=== PATIENT | male | born 1960 | race Caucasian/White ===

== ENCOUNTER 2018-05-18 12:47 | Emergency (ER) | payer OTHER ==
[2018-05-18 12:51] VITALS: BP 139/84; PULSE 88; TEMP 98.5; BMI 23.6
[2018-05-18] MEDS ORDERED: IBUPROFEN 600 MG TABLET (FP) PO ONE ×2 (13:46→13:50)
[2018-05-18] MEDS ORDERED: SULFAMETHOXAZOLE/TRIMETHOPRIM 800MG/160MG D.S. TABLET PO ONE (13:46)
[2018-05-18] MEDS ORDERED: SULFAMETHOXAZOLE/TRIMETHOPRIM 800MG/160MG D.S. TABLET ONE (13:50)
--- NOTE | 2018-05-18 14:06 | PDOC ---
History of Present Illness - General Chief Complaint: Wound Stated Complaint: WOUND Time Seen by Provider: 05/18/18 13:11 History Source: Patient Exam Limitations: No Limitations - History of Present Illness Initial Comments: 05/18/18 14:00 58y/o M h/o heroine use (last about 1 week ago), ? borderline diabetes but poor medical f/u presents for evaluation of L foot wound for 2 weeks in setting of one month L foot pain. Pt had atraumatic L great toe pain about one month ago, diagnosed with gout in ED, then started on steroids about 2 weeks ago by podiatry. Pt's great toe pain/swelling resolved, as did the associated L foot swelling, but noted increased swelling over past week and now ulcer/wound near 5th digit. no f/c/redness/discharge, no numbness/weakness, no bleeding. Missed his f/u appt with podiatry, completed the steroid course yesterday, so he presents for evaluation. Past History - Past Medical History Allergies/Adverse Reactions: Allergies Allergy/AdvReac Type Severity Reaction Status Date / Time tetanus toxoid, adsorbed Allergy Intermediate Verified 05/18/18 12:48 Home Medications: Ambulatory Orders Sulfamethoxazole/Trimethoprim [Bactrim Ds -] 1 tab PO BID #20 tablet 05/18/18 Anemia: No Asthma: No Cancer: No Cardiac Disorders: No CVA: No COPD: No CHF: No Dementia: No Diabetes: No GI Disorders: No Disorders: No HTN: No Hypercholesterolemia: No Kidney Stones: No Liver Disease: No Seizures: No Thyroid Disease: No Other medical history: GOUT - Surgical History Abdominal Surgery: No Appendectomy: No Cardiac Surgery: No Cholecystectomy: No Lung Surgery: No Neurologic Surgery: No Orthopedic Surgery: No - Reproductive History Testicular Surgery: No - Suicide/Smoking/Psychosocial Hx Smoking History: Current every day smoker Have you smoked in the past 12 months: Yes Number of Cigarettes Smoked Daily: 20 Cigars Per Day: 0 Information on smoking cessation initiated: Yes 'Breaking Loose' booklet given: 05/18/18 Hx Alcohol Use: Yes Drug/Substance Use Hx: No Substance Use Type: Alcohol Hx Substance Use Treatment: Yes (08/27/14 to 08/29/14 [facility] completed) Review of Systems - Review of Systems Constitutional: No: Chills, Fever, Night Sweats HEENTM: No: Recent change in vision Respiratory: No: Shortness of Breath Cardiac (ROS): No: Chest Pain, Lightheadedness ABD/GI: No: Nausea, Vomiting : No: Frequency Musculoskeletal: Yes: See HPI Integumentary: Yes: See HPI Neurological: No: Headache, Paresthesia, Tingling, Weakness, Dizziness Endocrine: No: Symptoms Reported All Other Systems: Reviewed and Negative *Physical Exam - Vital Signs Last Vital Signs Temp Pulse Resp BP Pulse Ox 98.5 F 88 19 139/84 97 05/18/18 12:47 05/18/18 12:47 05/18/18 12:47 05/18/18 12:47 05/18/18 12:47 - Physical Exam Comments: 05/18/18 14:06 Afebrile. Vital signs normal. GENERAL: The patient is awake, alert, and fully oriented, in no acute distress. HEAD: Normal with no signs of trauma. EYES: PERRL, EOMI, sclera anicteric, conjunctiva clear with no pallor. ENT: oropharynx clear without exudates. Moist mucous membranes. NECK: Normal range of motion, supple without lymphadenopathy, JVD, or masses. LUNGS: Breath sounds equal, clear to auscultation bilaterally. No wheeze/ crackles. HEART: Regular rate and rhythm, normal S1 and S2 without murmur or rub. ABDOMEN: Soft/nontender/nondistended. BS wnl. No guarding or rebound. No palpable masses. No hepatosplenomegaly. EXTREMITIES: L foot: 2+ dorsal edema, no cellulitis. 2cm superficial wound to lateral/plantar aspect over distal 5th metatarsal, no deep tissue exposure, no bleeding/purulence, no gangrene. slight ttp, no fluctuance or crepitus. Normal range of motion, no leg edema. 2+ distal pulses. NEUROLOGICAL: Cranial nerves II through XII grossly intact. Normal speech, normal gait. PSYCH: Normal mood, normal affect. SKIN: As noted ED Treatment Course - LABORATORY CBC & Chemistry Diagram: 05/18/18 13:56 05/18/18 13:56 - RADIOLOGY Radiology Studies Ordered: Category Date Time Status FOOT-LEFT [RAD] Stat Radiology 05/18/18 13:35 Ordered - Medications Given in the ED: ED Medications Discontinued Medications Generic Name Dose Route Start Last Admin Trade Name Freq PRN Reason Stop Dose Admin Ibuprofen 600 mg 05/18/18 13:46 05/18/18 13:56 Motrin - PO 05/18/18 13:47 600 mg ONCE ONE Administration Trimethoprim/Sulfamethoxazole 1 each 05/18/18 13:46 05/18/18 13:56 Bactrim Ds - PO 05/18/18 13:47 1 each ONCE ONE Administration Medical Decision Making - Medical Decision Making 05/18/18 14:10 58y/o M borderline diabetic, heroine use p/w superficial L foot wound for 2 weeks in setting of recent gout flare and prednisone course. Possible skin breakdown from recent edema 2/2 gout flare, which itself has resolved. Now with superficial ulceration, nvi without evidence of deep tissue involvement. vitals stable without evidence of sepsis. check cbc and glucose L foot xray empiric abx if above wnl, d/c with abx and referral to podiatry/wound care 05/18/18 15:04 wbc 16, expected s/p prednisone course completed yesterday. chem wnl with slightly elevated glucose 133, no dka. on my prelim review of xray, no soft tissue free air or obvious bone breakdown. 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 understands return criteria. *DC/Admit/Observation/Transfer Diagnosis at time of Disposition: Foot ulcer, left Qualifiers: Non-pressure ulcer stage: limited to breakdown of skin Qualified Code(s): L97.521 - Non-pressure chronic ulcer of other part of left foot limited to breakdown of skin - Discharge Dispostion Disposition: HOME Condition at time of disposition: Stable - Prescriptions Prescriptions: Sulfamethoxazole/Trimethoprim [Bactrim Ds -] 1 tab PO BID #20 tablet - Referrals Referrals: Christos Bryant MD [Staff Physician] - [facility] [place] [facility] [place] [Provider Group] - Patient Instructions Printed Discharge Instructions: DI for Wound Infection Additional Instructions: Activity as tolerated. Stay hydrated. There is a superficial skin wound on the foot which may have an early infection. Take Bactrim as prescribed for antibiotic, but it will also need local care and debridement. This needs to be done with your head waiter/waitress banquet or in a wound clinic. Tylenol 1000 mg every 8 hours and/or ibuprofen 600 mg every 8 hours as needed for pain. Ice and elevate the affected areas for 20 minutes every 3-4 hours to reduce swelling, but avoid from soaking the wound. Continue your medications as previously prescribed by your physician. You should follow up with your head waiter/waitress banquet as soon as possible regarding today's emergency department visit. You can also establish primary care in our clinic, or visit Dr. Bryant in our wound clinic. Return to the emergency department for any new or concerning symptoms, particularly persistent or worsening swelling or pain, fever/chills, redness/pus /blood, numbness or weakness. - Post Discharge Activity
[2018-05-18 14:26] LABS: ANION GAP 6 MMOL/L (8-16); BLOOD UREA NITROGEN 17 mg/dl (7-18); CALCIUM 8.8 mg/dl (8.4-10.2); CHLORIDE 100 mmol/L (98-107); CO2 26 mmol/L (22-28); CREATININE 0.7 mg/dl (0.6-1.3); GLUCOSE,RANDOM 133 mg/dl (74-106); POTASSIUM 4.3 mmol/L (3.5-5.1); SODIUM 132 mmol/L (136-145)
[2018-05-18 14:32] LABS: HEMATOCRIT 44.1 % (35.4-49); HEMOGLOBIN 14.7 GM/dl (11.7-16.9); MCH 31.3 pg (25.7-33.7); MCHC 33.3 g/dl (32.0-35.9); MEAN CELL VOLUME 94.1 fl (80-96); MEAN PLT VOLUME 8.2 fl (7.5-11.1); PLATELET COUNT 402 K/MM3 (134-434); RBC 4.68 M/mm3 (4.00-5.60); RDW 13.8 % (11.9-15.9); WHITE BLOOD COUNT 16.3 K/mm3 (4.0-10.8)
[2018-05-18 15:26] LABS: PLATELET ESTIMATE ADEQUATE
== END 2018-05-18 15:26 | disposition home or self-care (01) ==
LOC: FER 12:47
DX: L97.521 Non-pressure chronic ulcer of other part of left foot limited to breakdown of skin (principal); R73.03 Prediabetes; F17.210 Nicotine dependence, cigarettes, uncomplicated
CPT/HCPCS: 36415; 73630-TC-LT; 80048; 85025; 99282-25

== ENCOUNTER 2018-10-21 21:05 | Inpatient (IN) | payer OTHER ==
--- NOTE | 2018-10-21 21:42 | HP ---
COWS - Scale Resting Pulse: 0= NE 80 or Below Sweatin= Chills/Flushing Restless Observation: 1= Difficult to Sit Still Pupil Size: 1= Pupils >than Normal Bone or Joint Aches: 1= Mild Discomfort Runny Nose/ Eye Tearin= None GI Upset > 30mins: 0= None Tremor Observation: 1= Tremor [place], Not Seen Yawning Observation: 2= >3x During Session Anxiety or Irritability: 2=Irritable/Anxious Goose Flesh Skin: 0=Smooth Skin COWS Score: 9 CIWA Score Nausea/Vomitin-No Nausea/No Vomiting Muscle Tremors: 2 Anxiety: 2 Agitation: 0-Normal Activity Paroxysmal Sweats: 2 Orientation: 2-Disoriented Date<2 days Tacttile Disturbances: 3-Moderate Itch/Numb/Burn (b/t feet) Auditory Disturbances: 0-None Visual Disturbances: 0-None Headache: 0-None Present CIWA-Ar Total Score: 11 - Admission Criteria [facility] Guidelines: Admission for Medically Managed Detox: Requires at least one of the followin. CIWA greater than 12 2. Seizures within the past 24 hours 3. Delirium tremens within the past 24 hours 4. Hallucinations within the past 24 hours 5. Acute intervention needed for co occurring medical disorder 6. Acute intervention needed for co occurring psychiatric disorder 7. Severe withdrawal that cannot be handled at a lower level of care (continued vomiting, continued diarrhea, abnormal vital signs) requiring intravenous medication and/or fluids 8. Admission [facility] Chief Complaint: alcohol and heroin detox Allergies/Adverse Reactions: Allergies Allergy/AdvReac Type Severity Reaction Status Date / Time tetanus toxoid, adsorbed Allergy Intermediate Verified 05/26/18 20:02 History of Present Illness: 58 yo male with hx of nicotine, heroin intravenous and alcohol, self referred , is here for detox. Reports 3.5 years sobriety and relapsed four months ago. Reports last detox Aug 2018 at [facility]. utox positive for COLEMAN, FEN, MOP, OXY. Longest period of sobriety 3.5 years. PMHX: Gout, Hep C and treated Denies psychiatric hx. Reports hx of syncope with last episode three weeks ago. Denies suicidal / homicidal ideation. Exam Limitations: No Limitations - Ebola screening Have you traveled outside of the country in the last 21 days: No (N) Have you had contact with anyone from an Ebola affected area: No Do you have a fever: No - Review of Systems Constitutional: Loss of Appetite, Changes in sleep, Unintentional Wgt. Loss ( 10lbs in past three months), Other (fatigue) EENT: reports: Other (decrease heasring right) Respiratory: reports: No Symptoms reported Cardiac: reports: No Symptoms Reported GI: reports: Poor Appetite, Poor Fluid Intake : reports: No Symptoms Reported Musculoskeletal: reports: No Symptoms Reported Integumentary: reports: Dryness Neuro: reports: See HPI Endocrine: reports: Increased Thirst Hematology: reports: No Symptoms Reported Psychiatric: reports: Orientated x3, Depressed Other Systems: Reviewed and Negative Patient History - Patient Medical History Hx Anemia: No Hx Asthma: No Hx Chronic Obstructive Pulmonary Disease (COPD): No Hx Cancer: No Hx Cardiac Disorders: No Hx Congestive Heart Failure: No Hx Hypertension: No Hx Hypercholesterolemia: No Hx Pacemaker: No HX Cerebrovascular Accident: No Hx Seizures: No Hx Dementia: No Hx Diabetes: No Hx Gastrointestinal Disorders: No Hx Liver Disease: Yes (Hep C and treated ) Hx Genitourinary Disorders: No Hx Sexually Transmitted Disorders: No Hx Renal Disease (ESRD): No Hx Thyroid Disease: No Hx Human Immunodeficiency Virus (HIV): No (NEGATIVE HX) Hx Hepatitis C: Yes (dx about 8 years ago, treated ) Hx Depression: Yes (DEPRESSED) Hx Suicide Attempt: No (DENIES) Hx Bipolar Disorder: No Hx Schizophrenia: No - Patient Surgical History Past Surgical History: No Hx Neurologic Surgery: No Hx Cataract Extraction: No Hx Cardiac Surgery: No Hx Lung Surgery: No Hx Breast Surgery: No Hx Breast Biopsy: No Hx Abdominal Surgery: No Hx Appendectomy: No Hx Cholecystectomy: No Hx Genitourinary Surgery: No Hx Section: No Hx Orthopedic Surgery: No - PPD History Date: 05/09/14 Results: 0 mm - Smoking Cessation Smoking history: Current every day smoker Have you smoked in the past 12 months: Yes Aproximately how many cigarettes per day: 20 Cigars Per Day: 0 Hx Chewing Tobacco Use: No Initiated information on smoking cessation: Yes 'Breaking Loose' booklet given: 10/21/18 - Substance & Tx. History Hx Alcohol Use: Yes Hx Substance Use: Yes Substance Use Type: Alcohol, Cocaine, Heroin Hx Substance Use Treatment: Yes (Last detox Aug 2018 at [facility] ) - Substances abused Alcohol Substance route: Oral Frequency: Daily Amount used: 1 pint of vodka/Brad Dunbar/ 6 packs of beer Age of first use: 13 Date of last use: 10/21/18 Heroin Substance route: Injection Frequency: Daily Amount used: 15 bags Age of first use: 22 Date of last use: 10/21/18 Family Disease History - Family Disease History Family Disease History: Diabetes: Mother, [place]: Grandparent (GF, lung cancer, and a smoker), Other: Father (ADDICTED TO DRUGS AND ) Admission Physical Exam S - Vital Signs Vital Signs: Vital Signs - 24 hr 10/21/18 21:12 Temperature 98.1 F Pulse Rate 70 Respiratory 16 Rate Blood Pressure 106/65 - Physical General Appearance: Yes: Appropriately Dressed, Mild Distress, Alcohol on Breath , Thin, Anxious HEENTM: Yes: EOMI, Normal ENT Inspection, Normocephalic, Normal Voice, ANGELICA, Pharynx Normal, Tm's normal, Rhinorrhea, Other (cheilitis, [place] (R)) Respiratory: Yes: Chest Non-Tender, Lungs Clear, Normal Breath Sounds, No Respiratory Distress, No Accessory Muscle Use Neck: Yes: Within Normal Limits Breast: Yes: Breast Exam Deferred Cardiology: Yes: Regular Rhythm, Regular Rate Abdominal: Yes: Normal Bowel Sounds, Non Tender, Flat, Soft Genitourinary: Yes: Within Normal Limits Back: Yes: Normal Inspection Musculoskeletal: Yes: full range of Motion, Gait Steady, Pelvis Stable Extremities: Yes: Normal Capillary Refill, Normal Inspection, Normal Range of Motion, Other (+tinea pedis, +calus b/l LE) Neurological: Yes: license clerk II-XII NML intact, Fully Oriented, Alert, Motor Strength 5/5, Depressed Affect Integumentary: Yes: Normal Color, Warm, Diaphoresis, Track Dor[place] (both hands, davion infectin present) Lymphatic: Yes: Within Normal Limits - Diagnostic (1) Alcohol dependence with withdrawal Current Visit: Yes Status: Acute Qualifiers: Complication of substance-induced condition: uncomplicated Qualified Code(s ): F10.230 - Alcohol dependence with withdrawal, uncomplicated (2) Opioid dependence with withdrawal Current Visit: Yes Status: Acute (3) Weight decreased Current Visit: Yes Status: Active (4) Nicotine dependence Current Visit: Yes Status: Acute Qualifiers: Nicotine product type: cigarettes (5) IVDU (intravenous drug user) Current Visit: Yes Status: Acute Cleared for Admission S - Detox or Rehab [facility] Level of Care: Medically Managed Detox Regimen/Protocol: Methadone/Librium Inpatient Rehab Admission - Rehab Decision to Admit Inpatient rehab admission?: No
[2018-10-21] MEDS ORDERED: MENTHOL/PHENOL 1 EACH UD MM PRN (22:04)
[2018-10-21] MEDS ORDERED: NICOTINE POLACRILEX 2 MG GUM BUC PRN (22:04)
[2018-10-21] MEDS ORDERED: METHOCARBAMOL 500 MG TABLET PO PRN (22:04)
[2018-10-21] MEDS ORDERED: cloNIDine HCL 0.1 MG TABLET PO PRN (22:04)
[2018-10-21] MEDS ORDERED: MAG HYDROX/AL HYDROX/SIMETH 30 ML UNIT-DOSE CUP PO PRN (22:04)
[2018-10-21] MEDS ORDERED: MELATONIN 5 MG TABLETS PO PRN (22:04)
[2018-10-21] MEDS ORDERED: chlordiazePOXIDE HCL 10 MG CAPSULE PO PRN (22:04)
[2018-10-21] MEDS ORDERED: MAGNESIUM CITRATE 300 ML BOTTLE PO PRN (22:04)
[2018-10-21] MEDS ORDERED: IBUPROFEN 400 MG TABLET (FP) PO PRN (22:04)
[2018-10-21] MEDS ORDERED: ACETAMINOPHEN 325 MG TABLET (FP) PO PRN ×2 (22:04)
[2018-10-21] MEDS ORDERED: MAGNESIUM HYDROX 2400MG/30ML ORAL SUSPENSION 30 ML CUP PO PRN (22:04)
[2018-10-21] MEDS ORDERED: BISMUTH SUBSALICYLATE 524 MG/30 ML UD PO PRN (22:04)
--- NOTE | 2018-10-21 22:37 | PN ---
[facility] Progress Note Note: EKG reviewed and indicates Bradycardia. Denies vertigo, weakness, fainting or SOB.
[2018-10-21] MEDS: chlordiazePOXIDE HCL 25 MG CAPSULE PO SCH (22:57)
[2018-10-21] MEDS ORDERED: METHADONE HCL 10 MG TABLET (FOR DETOX USE ONLY) PO ONE (23:00)
[2018-10-22] MEDS: chlordiazePOXIDE HCL 25 MG CAPSULE PO SCH ×2 (05:18→13:10)
[2018-10-22 06:10] VITALS: TEMP 96.9
[2018-10-22] MEDS ORDERED: METHADONE HCL 5 MG TABLET (FOR DETOX USE ONLY) PO ONE (10:00)
[2018-10-22] MEDS ORDERED: PRENATAL VITAMINS W/ FOLIC ACID TABLET (FP) PO SCH (10:00)
[2018-10-22] MEDS ORDERED: NICOTINE 21 MG/24 HOURS TOPICAL PATCH TD SCH (10:00)
[2018-10-22 10:27] LABS: HEMATOCRIT 46.7 % (35.4-49); HEMOGLOBIN 15.6 GM/dL (11.7-16.9); MCH 30.5 pg (25.7-33.7); MCHC 33.4 g/dl (32.0-35.9); MEAN CELL VOLUME 91.2 fl (80-96); MEAN PLT VOLUME 7.6 fl (7.5-11.1); PLATELET COUNT 317 K/MM3 (134-434); RBC 5.12 M/mm3 (4.00-5.60); RDW 14.7 % (11.9-15.9); WHITE BLOOD COUNT 9.7 K/mm3 (4.0-10.0)
[2018-10-22 10:31] LABS: ALBUMIN 3.4 g/dl (3.4-5.0); ALK PHOS 65 U/L (45-117); ANION GAP 8 MMOL/L (8-16); BILIRUBIN,TOTAL 0.7 mg/dL (0.2-1); BLOOD UREA NITROGEN 12 mg/dL (7-18); CALCIUM 8.8 mg/dL (8.5-10.1); CHLORIDE 105 mmol/L (98-107); CO2 28 mmol/L (21-32); CREATININE 0.7 mg/dL (0.55-1.3); GLUCOSE,RANDOM 87 mg/dL (74-106); POTASSIUM 4.2 mmol/L (3.5-5.1); SGOT/AST 12 U/L (15-37); SGPT/ALT 15 U/L (13-61); SODIUM 140 mmol/L (136-145); TOT PROT 6.6 g/dl (6.4-8.2)
--- NOTE | 2018-10-22 12:24 | EKG ---
Test Reason : Blood Pressure : / mmHG Vent. Rate : 057 BPM Atrial Rate : 057 BPM P-R Int : 130 ms QRS Dur : 092 ms QT Int : 414 ms P-R-T Axes : 053 075 017 degrees QTc Int : 402 ms SINUS BRADYCARDIA OTHERWISE NORMAL ECG NO PREVIOUS ECGS AVAILABLE Confirmed by NEAL NINO, ELISEO ([id number]) on 10/22/2018 12:24:39 PM Referred By: Confirmed By:ELISEO DE JESUS MD
--- NOTE | 2018-10-22 12:27 | PN ---
S CIWA - CIWA Score Nausea/Vomitin Muscle Tremors: 2 Anxiety: 2 Agitation: 2 Paroxysmal Sweats: 1-Minimal Palms Moist Orientation: 0-Oriented Tacttile Disturbances: 1-Very Mild Itch/Numbness Auditory Disturbances: 1-Very Mild Visual Disturbances: 0-None Headache: 2-Mild CIWA-Ar Total Score: 13 [facility] COWS - Scale Resting Pulse: 1= VT 81-100 Sweatin= Chills/Flushing Restless Observation: 3= Extraneous Movement Pupil Size: 1= Pupils >than Normal Bone or Joint Aches: 2= Severe Diffuse Aches Runny Nose/ Eye Tearin= Runny Nose/Eyes GI Upset > 30mins: 2= Nausea/Diarrhea Tremor Observation of Outstretched Hands: 2= Slight Tremor Visible Yawning Observation: 1= 1-2x During Session Anxiety or Irritability: 2=Irritable/Anxious Goose Flesh Skin: 0=Smooth Skin COWS Score: 17 S Progress Note (SOAP) Subjective: alert,irritable,anxious,interrupted sleep,rhonda in the body and back,tremor Objective: 10/22/18 12:24 Vital Signs Temperature 96.9 F L 10/22/18 10:30 Pulse Rate 89 10/22/18 10:30 Respiratory Rate 18 10/22/18 10:30 Blood Pressure 137/89 10/22/18 10:30 O2 Sat by Pulse Oximetry (%) ekg sinus bradycardia 57/min,qt/qtc 414/402 no chest pain,no sob,no dizziness Laboratory Last Values WBC 9.7 K/mm3 (4.0-10.0) 10/22/18 07:00 RBC 5.12 M/mm3 (4.00-5.60) 10/22/18 07:00 Hgb 15.6 GM/dL (11.7-16.9) 10/22/18 07:00 Hct 46.7 % (35.4-49) 10/22/18 07:00 MCV 91.2 fl (80-96) 10/22/18 07:00 MCH 30.5 pg (25.7-33.7) 10/22/18 07:00 MCHC 33.4 g/dl (32.0-35.9) 10/22/18 07:00 RDW 14.7 % (11.9-15.9) 10/22/18 07:00 Plt Count 317 K/MM3 (134-434) 10/22/18 07:00 MPV 7.6 fl (7.5-11.1) 10/22/18 07:00 Sodium 140 mmol/L (136-145) 10/22/18 07:00 Potassium 4.2 mmol/L (3.5-5.1) 10/22/18 07:00 Chloride 105 mmol/L (98-107) 10/22/18 07:00 Carbon Dioxide 28 mmol/L (21-32) 10/22/18 07:00 Anion Gap 8 MMOL/L (8-16) 10/22/18 07:00 BUN 12 mg/dL (7-18) 10/22/18 07:00 Creatinine 0.7 mg/dL (0.55-1.3) 10/22/18 07:00 Creat Clearance w eGFR 115.83 (>60) 10/22/18 07:00 Random Glucose 87 mg/dL (74-106) 10/22/18 07:00 Calcium 8.8 mg/dL (8.5-10.1) 10/22/18 07:00 Total Bilirubin 0.7 mg/dL (0.2-1) 10/22/18 07:00 AST 12 U/L (15-37) L 10/22/18 07:00 ALT 15 U/L (13-61) 10/22/18 07:00 Alkaline Phosphatase 65 U/L (45-117) 10/22/18 07:00 Total Protein 6.6 g/dl (6.4-8.2) 10/22/18 07:00 Albumin 3.4 g/dl (3.4-5.0) 10/22/18 07:00 RPR Titer Nonreactive (NONREACTIVE) 10/22/18 07:00 Assessment: 10/22/18 12:26 withdrawal symptom Plan: continue detox
--- NOTE | 2018-10-22 12:32 | PN ---
[facility] Progress Note Note: patient did not want to continue treatment,all attempts to convince patient to stay with no avail,the risk of relapsing is high,patient understood, seen by counselor,patient signed release ama,advise to go to nearest emrgency room if any problem
--- NOTE | 2018-10-22 12:35 | DS ---
[facility] Detox Discharge Summary Admission Date: 10/21/18 Discharge Date: 10/22/18 - History Present History: Alcohol Dependence, Opioid Dependence Additional Comments: patient signed release ama - Physical Exam Results Vital Signs: Vital Signs Temperature 96.9 F L 10/22/18 10:30 Pulse Rate 89 10/22/18 10:30 Respiratory Rate 18 10/22/18 10:30 Blood Pressure 137/89 10/22/18 10:30 O2 Sat by Pulse Oximetry (%) Pertinent Admission Physical Exam Findings: withdrawal signs and symptom Vital Signs Temperature 96.9 F L 10/22/18 10:30 Pulse Rate 89 10/22/18 10:30 Respiratory Rate 18 10/22/18 10:30 Blood Pressure 137/89 10/22/18 10:30 O2 Sat by Pulse Oximetry (%) Laboratory Last Values WBC 9.7 K/mm3 (4.0-10.0) 10/22/18 07:00 RBC 5.12 M/mm3 (4.00-5.60) 10/22/18 07:00 Hgb 15.6 GM/dL (11.7-16.9) 10/22/18 07:00 Hct 46.7 % (35.4-49) 10/22/18 07:00 MCV 91.2 fl (80-96) 10/22/18 07:00 MCH 30.5 pg (25.7-33.7) 10/22/18 07:00 MCHC 33.4 g/dl (32.0-35.9) 10/22/18 07:00 RDW 14.7 % (11.9-15.9) 10/22/18 07:00 Plt Count 317 K/MM3 (134-434) 10/22/18 07:00 MPV 7.6 fl (7.5-11.1) 10/22/18 07:00 Sodium 140 mmol/L (136-145) 10/22/18 07:00 Potassium 4.2 mmol/L (3.5-5.1) 10/22/18 07:00 Chloride 105 mmol/L (98-107) 10/22/18 07:00 Carbon Dioxide 28 mmol/L (21-32) 10/22/18 07:00 Anion Gap 8 MMOL/L (8-16) 10/22/18 07:00 BUN 12 mg/dL (7-18) 10/22/18 07:00 Creatinine 0.7 mg/dL (0.55-1.3) 10/22/18 07:00 Creat Clearance w eGFR 115.83 (>60) 10/22/18 07:00 Random Glucose 87 mg/dL (74-106) 10/22/18 07:00 Calcium 8.8 mg/dL (8.5-10.1) 10/22/18 07:00 Total Bilirubin 0.7 mg/dL (0.2-1) 10/22/18 07:00 AST 12 U/L (15-37) L 10/22/18 07:00 ALT 15 U/L (13-61) 10/22/18 07:00 Alkaline Phosphatase 65 U/L (45-117) 10/22/18 07:00 Total Protein 6.6 g/dl (6.4-8.2) 10/22/18 07:00 Albumin 3.4 g/dl (3.4-5.0) 10/22/18 07:00 RPR Titer Nonreactive (NONREACTIVE) 10/22/18 07:00 - Medication Discharge Medications: Ambulatory Orders NK [No Known Home Medication] 05/26/18 - Diagnosis (1) Weight decreased Current Visit: Yes Status: Active (2) Alcohol dependence with withdrawal Current Visit: Yes Status: Acute Qualifiers: Complication of substance-induced condition: uncomplicated Qualified Code(s ): F10.230 - Alcohol dependence with withdrawal, uncomplicated (3) IVDU (intravenous drug user) Current Visit: Yes Status: Acute (4) Nicotine dependence Current Visit: Yes Status: Acute Qualifiers: Nicotine product type: cigarettes (5) Opioid dependence with withdrawal Current Visit: Yes Status: Acute (6) Hepatitis C carrier Current Visit: No Status: Chronic - AMA Did Patient Leave Against Medical Advice: Yes
[2018-10-22 13:54] VITALS: BP 118/80; PULSE 80
[2018-10-22] MEDS ORDERED: chlordiazePOXIDE 5 MG CAPSULE PO SCH (21:00)
[2018-10-22] MEDS ORDERED: THIAMINE HCL 100 MG TABLET (FP) PO SCH (22:00)
[2018-10-23] MEDS ORDERED: METHADONE HCL 10 MG TABLET (FOR DETOX USE ONLY) PO ONE (10:00)
[2018-10-23] MEDS ORDERED: chlordiazePOXIDE HCL 10 MG CAPSULE PO PRN (21:00)
[2018-10-23] MEDS ORDERED: chlordiazePOXIDE HCL 10 MG CAPSULE PO SCH (21:00)
[2018-10-24] MEDS ORDERED: METHADONE HCL 5 MG TABLET (FOR DETOX USE ONLY) PO ONE (06:00)
== END 2018-10-22 12:47 | disposition home or self-care (01) | DRG 773 ==
LOC: YASAS 21:05 → Y3N 22:17
PROVIDERS: ADMIT Surgery; ATTEND Surgery
PROC: HZ2ZZZZ Detoxification Services for Substance Abuse Treatment (ICD-10-PCS; principal; 2018-10-21)
DX: F10.230 Alcohol dependence with withdrawal, uncomplicated (principal); F11.23 Opioid dependence with withdrawal; F17.210 Nicotine dependence, cigarettes, uncomplicated; F32.9 Major depressive disorder, single episode, unspecified; R63.4 Abnormal weight loss; Z68.24 Body mass index [BMI] 24.0-24.9, adult; Z86.19 Personal history of other infectious and parasitic diseases
CPT/HCPCS: 36415; 80053; 85027; 86593; 93005; 93010